=== PATIENT | female | born 1945 | race Caucasian/White ===

== ENCOUNTER → 2016-12-04 | Outpatient (CLI) | payer MEDICARE ==
[~2016-12-04] MED LIST: FUROSEMIDE 20MG20 MG PO; NOMEDS XX; PREDNISONE 10MG10 MG PO; SIMVASTATIN20 MG PO
--- NOTE | 2016-12-04 15:31 | CARDIOVASCULAR REPORT ---
"Cerebrovascular Exam Indications: 780.4 Dizziness and giddiness. 780.2 Syncope and collapse. IMPRESSIONS 1. The bilateral vertebral arteries are patent with normal antegrade flow. 2. Study suggests less than 20% stenosis involving the right internal carotid artery. 3. Study suggests less than 20% stenosis involving the left internal carotid artery. There is a moderate amount of plaque left bulb area. Carotid duplex study. Complete study and Doppler flow study including spectral analysis, color and mg scale imaging. Location: Vascular laboratory. Patient status: Outpatient. Tables: Arterial flow: + +--------+--------+ |Location |V sys |V ed | + +--------+--------+ |Right CCA - proximal|60.5cm/s|18.9cm/s| + +--------+--------+ |Right CCA - distal |57.4cm/s|19.6cm/s| + +--------+--------+ |Right ECA |55.8cm/s|--------| + +--------+--------+ |Right ICA - proximal|59.7cm/s|23.6cm/s| + +--------+--------+ |Right ICA - mid |75.4cm/s|31.4cm/s| + +--------+--------+ |Right ICA - distal |70.7cm/s|25.9cm/s| + +--------+--------+ |Right vertebral |32.2cm/s|--------| + +--------+--------+ |Left CCA - proximal |56.6cm/s|15.7cm/s| + +--------+--------+ |Left CCA - distal |61.3cm/s|19.6cm/s| + +--------+--------+ |Left ECA |57.4cm/s|--------| + +--------+--------+ |Left ICA - proximal |64.4cm/s|23.6cm/s| + +--------+--------+ |Left ICA - mid |55.8cm/s|28.3cm/s| + +--------+--------+ |Left ICA - distal |60.5cm/s|26.3cm/s| + +--------+--------+ |Left vertebral |31.4cm/s|--------| + +--------+--------+ Velocity ratios: + + + + + + | |Right, V sys|Right, V ed|Left, V sys|Left, V ed| + + + + + + |Max ICA/dist CCA|1.31 |1.6 |1.05 |1.44 | + + + + + + (Report amended ) Electronically signed by: Abad Livingston [id number]"
--- NOTE | 2016-12-04 21:44 | RADIOLOGY REPORT PS360 ---
CERVICAL SPINE 4 OR 5 VIEWS COMPARISON: None HISTORY: Stiff neck TECHNIQUE: AP lateral and oblique views and spot view of the odontoid FINDINGS: There is normal curvature and alignment. There is generalized osteopenia. However C1-C7 appear intact with no compression fracture seen. There is moderate disc space narrowing at the C6-7 level with minimal anterior osteophytic spurring noted area oblique films show no significant neural foraminal narrowing. There is mild arthritic changes of the apophyseal joints mid cervical spine. The prevertebral soft tissues are normal and the odontoid is normal. IMPRESSION: Osteopenia, mild degenerative disc disease C6-7
== END ==
LOC: RAD 14:47 → RT 14:47
DX: M43.6 Torticollis (principal); R42 Dizziness and giddiness